=== PATIENT | male | born 1965 | race Caucasian/White ===

== ENCOUNTER 2017-12-21 14:29 | Inpatient (IN) | payer OTHER ==
[~2017-12-21] VITALS: Ht 165.1 cm; Wt 80.8 kg
[2017-12-21 15:55] LABS: BASOPHIL % 0.5 % (0-2); PLATELET COUNT 272 x10^3mcL (130-400); RED CELL DISTRIBUTION WIDTH 13.7 % (11.5-14.5)
[2017-12-21 16:05] LABS: CALCIUM 9.2 mg/dL (8.5-10.1); CARBON DIOXIDE 25.6 mmol/L (21-32); CHLORIDE SERUM 108 mmol/L (98-107); CREATININE SERUM 1.1 mg/dL (0.7-1.3); GFR1 > 60 mL/min; GLUCOSE SERUM 114 mg/dL (74-106); POTASSIUM SERUM 3.7 mmol/L (3.5-5.1); SODIUM SERUM 144 mmol/L (136-145)
[2017-12-21 16:12] LABS: ALBUMIN 3.5 g/dL (3.4-5.0); ALKALINE PHOSPHATASE 90 U/L (46-116); ALT/SGPT 28 U/L (16-63); AST/SGOT 18 U/L (15-37); BILIRUBIN TOTAL 0.77 mg/dL (0.20-1.00); TOTAL PROTEIN, SERUM 6.8 g/dL (6.4-8.2)
[2017-12-21 16:50] LABS: CHOLESTEROL/HDL RATIO 6.4; PHOSPHOROUS 2.8 mg/dL (2.5-4.9)
[2017-12-21 16:58] LABS: FREE T4 1.11 ng/dL (0.76-1.46); FREE THYROXINE INDEX 2.2 ug/dL (1.4-4.5); T4(THYROXINE) 6.4 ug/dL (4.7-13.3)
[2017-12-21 17:06] LABS: T3 TOTAL 0.69 ng/mL
[2017-12-21 17:42] VITALS: BP 124/91
[2017-12-21 21:11] VITALS: BP 126/87
[2017-12-21 21:23] LABS: RED BLOOD CELLS 4.25 M/mm3 (4.52-5.90)
[2017-12-21 21:28] LABS: IRON 38 ug/dL (65-170); TOTAL IRON BINDING CAPACITY 252 ug/dL (250-450)
[2017-12-21 23:58] LABS: UA SPECIFIC GRAVITY 1.025 (1.005-1.035); microscopic required? YES; urine erythrocyte TRACE (NEGATIVE)
[2017-12-22 00:17] LABS: AMPHETAMINE QUAL UR NONE DETECTED (NEG <=1000)
[2017-12-22 05:54] VITALS: BP 129/89
[2017-12-22 06:47] LABS: BASOPHIL % 0.6 % (0-2); PLATELET COUNT 245 x10^3mcL (130-400); RED CELL DISTRIBUTION WIDTH 13.8 % (11.5-14.5)
[2017-12-22 08:02] LABS: CALCIUM 8.5 mg/dL (8.5-10.1); CHLORIDE SERUM 108 mmol/L (98-107); CREATININE SERUM 1.1 mg/dL (0.7-1.3); GFR1 > 60 mL/min; GLUCOSE SERUM 101 mg/dL (74-106); MAGNESIUM 1.9 mg/dL (1.8-2.4); POTASSIUM SERUM 3.9 mmol/L (3.5-5.1); SODIUM SERUM 143 mmol/L (136-145)
[2017-12-22 10:37] VITALS: BP 136/86
[2017-12-22 13:29] VITALS: BP 137/85
[2017-12-22] MEDS ORDERED: TYL325 PO (17:31)
[2017-12-22] MEDS ORDERED: APAP/HYDROCODON1 T13 PO (17:31)
[2017-12-22] MEDS ORDERED: COL100 PO (17:31)
[2017-12-22] MEDS ORDERED: ZOFI IV (17:32)
[2017-12-22 18:46] VITALS: BP 137/83
[2017-12-22 22:02] VITALS: BP 132/84
[2017-12-23 04:51] VITALS: BP 127/78
[2017-12-23 06:40] LABS: BASOPHIL % 0.3 % (0-2); PLATELET COUNT 244 x10^3mcL (130-400); RED CELL DISTRIBUTION WIDTH 13.9 % (11.5-14.5)
[2017-12-23 06:58] LABS: CALCIUM 8.9 mg/dL (8.5-10.1); CARBON DIOXIDE 26.1 mmol/L (21-32); CHLORIDE SERUM 106 mmol/L (98-107); CREATININE SERUM 1.1 mg/dL (0.7-1.3); GFR1 > 60 mL/min; GLUCOSE SERUM 102 mg/dL (74-106); PHOSPHOROUS 3.4 mg/dL (2.5-4.9); POTASSIUM SERUM 3.8 mmol/L (3.5-5.1); SODIUM SERUM 141 mmol/L (136-145)
[2017-12-23 10:12] VITALS: BP 124/85
[2017-12-23 12:56] VITALS: BP 142/91
[2017-12-23 17:17] VITALS: BP 124/80; BP 152/59
[2017-12-23 20:59] VITALS: BP 116/78
== END 2017-12-23 22:42 | disposition short-term general hospital (02) | DRG 299 ==
LOC: ED 14:29 → DU 15:45
PROVIDERS: Emergency Medicine; Family Medicine
DX: I82.411 Acute embolism and thrombosis of right femoral vein (principal); N17.0 Acute kidney failure with tubular necrosis; E87.8 Other disorders of electrolyte and fluid balance, not elsewhere classified; E02 Subclinical iodine-deficiency hypothyroidism; D64.9 Anemia, unspecified; R73.03 Prediabetes; E78.5 Hyperlipidemia, unspecified; I86.1 Scrotal varices; Z80.1 Family history of malignant neoplasm of trachea, bronchus and lung; Z80.43 Family history of malignant neoplasm of testis; Z68.29 Body mass index [BMI] 29.0-29.9, adult; E66.3 Overweight
CPT/HCPCS: 83880; 84439; J1644; J1940; J2916; J7030; Q0092